=== PATIENT | female | born 1945 | race Caucasian/White ===

== ENCOUNTER 2016-09-22 06:54 | Emergency (ER) | payer OTHER ==
[~2016-09-22] VITALS: Ht 152.4 cm; Wt 80.9 kg
[2016-09-22] MEDS ORDERED: METFORMIN HCL500 MG PO (07:14)
[2016-09-22] MEDS ORDERED: ATORVASTATIN CA20 MG PO (07:14)
[2016-09-22] MEDS ORDERED: LISINOPRIL10 MG PO (07:14)
[2016-09-22] MEDS ORDERED: TRIHEXYPHENIDYL PO (07:15)
[2016-09-22] MEDS ORDERED: SINEMET 25-2501 EAC1 PO (07:16)
[2016-09-22] MEDS ORDERED: NEURONTIN300 MG PO (07:16)
[2016-09-22] MEDS ORDERED: CALCIUM500 M4 PO (07:17)
[2016-09-22] MEDS ORDERED: WOMEN'S DAILY1 EAC5 PO (07:17)
[2016-09-22] MEDS ORDERED: ASCORBIC ACID100 MG PO (07:17)
[2016-09-22 07:47] LABS: MCH 30.4 PG (29.0-34.0); MCHC 34.1 G/DL (30.0-36.0); MCV 89.2 FL (83-99); MEAN PLAT.VOLUME 10.1 uM^3 (9.5-12.4); PLATELET COUNT 210 K/uL (156-360); RBC DIS.WIDTH-CV 12.1 % (11.8-14.6); RBC DIS.WIDTH-SD 39.3 % (39-53); RED BLOOD COUNT 4.15 M/uL (3.80-5.20); WHITE BLOOD COUNT 5.9 K/uL (4.1-10.2)
[2016-09-22 07:57] LABS: CHLORIDE 106 mEq/L (99-109); POTASSIUM 3.8 mEq/L (3.7-5.4); SODIUM 141 mEq/L (136-147)
[2016-09-22 07:59] LABS: GLUCOSE 140 mg/dL (70-99)
[2016-09-22 08:00] LABS: ANION GAP 7 MEQ/L (2-14)
[2016-09-22 08:01] LABS: TOTAL BILIRUBIN 0.8 mg/dL (0.0-1.0)
[2016-09-22 08:02] LABS: ALKALINE PHOSPHATASE 81 IU/L (3-129)
[2016-09-22 08:03] LABS: GFR ESTIMATE (CALCULATED) > 59 mL/min/
[2016-09-22 08:04] LABS: UREA NITROGEN (BUN) 15 mg/dL (9-23)
[2016-09-22 08:06] LABS: LIPASE 29 U/L (1.0-51.0)
[2016-09-22] MEDS ORDERED: NORCO 5/3251 TABLET PO (09:46)
[2016-09-22] MEDS ORDERED: ZOFRAN4 MG PO (09:46)
[2016-09-22 10:10] VITALS: BP 113/65
== END 2016-09-22 10:11 | disposition home or self-care (01) ==
LOC: EME 06:54
PROVIDERS: Emergency Medicine
DX: K80.20 Calculus of gallbladder without cholecystitis without obstruction (principal); G20 Parkinson's disease
CPT/HCPCS: 76705; 80053; 83690; 85027; 99281; 99284; J2405; J7030

== ENCOUNTER → 2016-09-25 | Outpatient (CLI) | payer MEDICARE, OTHER ==
[~2016-09-25] MED LIST: ASCORBIC ACID100 MG PO; ATORVASTATIN CA20 MG PO; CALCIUM500 M4 PO; LISINOPRIL10 MG PO; METFORMIN HCL500 MG PO; NEURONTIN300 MG PO; NORCO 5/3251 TABLET PO; SINEMET 25-2501 EAC1 PO; TRIHEXYPHENIDYL PO; WOMEN'S DAILY1 EAC5 PO; ZOFRAN4 MG PO
== END | disposition home or self-care (01) ==
LOC: CDC 15:37
DX: K81.9 Cholecystitis, unspecified (principal); I49.3 Ventricular premature depolarization
CPT/HCPCS: 93000

== ENCOUNTER 2016-10-08 07:45 | Day surgery (SDC) | payer OTHER ==
[~2016-10-08] VITALS: Ht 152.4 cm; Wt 80.7 kg
[~2016-10-08 07:45] MED LIST changes: +OMEPRAZOLE40 M1 PO; +TRIHEXYPHENIDYL2 MG PO
[2016-10-08 08:19] VITALS: BP 104/54
[2016-10-08 08:22] LABS: POINT-OF-CARE METER ID UU13113694
[2016-10-08 12:19] LABS: POINT-OF-CARE METER ID UU13113675
[2016-10-08] MEDS ORDERED: NORCO 5/3251 TABLET PO (12:31)
[2016-10-08 13:46] VITALS: BP 123/67
[2016-10-08 14:41] VITALS: BP 128/70
[2016-10-08 15:17] VITALS: BP 147/68
[2016-10-08 16:03] VITALS: BP 142/67
== END 2016-10-08 16:23 | disposition home or self-care (01) ==
LOC: SDC 07:45
PROVIDERS: Surgery
DX: K80.10 Calculus of gallbladder with chronic cholecystitis without obstruction (principal); E11.9 Type 2 diabetes mellitus without complications; G20 Parkinson's disease; E78.5 Hyperlipidemia, unspecified; I10 Essential (primary) hypertension; E66.9 Obesity, unspecified; Z68.35 Body mass index [BMI] 35.0-35.9, adult; Z79.84 Long term (current) use of oral hypoglycemic drugs; Z82.49 Family history of ischemic heart disease and other diseases of the circulatory system; Z83.3 Family history of diabetes mellitus
CPT/HCPCS: 74300; 82948; 88304; C1769; J0131; J0330; J1100; J1170; J2405; J2710; J3010; S0020